=== PATIENT | male | born 1975 | race American Indian/Alaskan Native ===

== ENCOUNTER → 2022-01-08 16:05 | Outpatient (CLI) | payer MEDICAID, OTHER, SELFPAY ==
--- NOTE | 2022-01-08 | DI.RAD.S_ITS ---
PROCEDURE: XR LUMBAR SPINE 2-3V INDICATIONS: Rib Pain/Lumbar Spine TECHNIQUE: 3 views of the lumbar spine were acquired. COMPARISON: None. FINDINGS: Bones: 5 [id number] vertebrae are present. 2 mm retrolisthesis L1-L2, L2-L3 and L3-L4. Mild disc height loss at the L5-S1 level. Mild L4-L5 and L5-S1 facet joint arthropathy. No vertebral body compression fractures. No suspicious bony lesions. Soft tissues: Overlying bowel gas pattern is normal. No suspicious soft tissue calcifications. IMPRESSION: Mild multilevel spondylosis. Dictated by: Wali Fierro [facility] Interpreted: Eleanor Dodd MD on 01/09/2022 at 8:36 Transcribed by: FLOR on 01/09/2022 at 8:37 Approved by: Eleanor Dodd M.D. on 01/19/2022 at 15:27
--- NOTE | 2022-01-08 | DI.RAD.S_ITS ---
PROCEDURE: XR RIBS LT MIN 3V W CXR1V INDICATIONS: Rib Pain/Lumbar Spine TECHNIQUE: 3 views of the left ribs were acquired, along with a single view chest. COMPARISON: None. FINDINGS: Surgical changes and devices: None. Bones and chest wall: Left 7th posterior lateral rib fracture.. No suspicious bony lesions. Overlying soft tissues appear unremarkable. Lungs and pleura: No pleural effusions or pneumothorax. Lungs appear clear. Mediastinum: Mediastinal contours appear normal. Heart size is normal. IMPRESSION: Minimally displaced left 7th posterior lateral rib fracture. Dictated by: Wali Fierro [facility] Interpreted: Dylan Peraza MD on 01/08/2022 at 16:57 Transcribed by: TIM on 01/08/2022 at 16:58 Approved by: Dylan Peraza M.D. on 01/08/2022 at 17:00
== END ==
PROVIDERS: Referring Provider Physician Assistant; Visit Provider Physician Assistant
DX: S22.32XA Fracture of one rib, left side, initial encounter for closed fracture (principal); M47.816 Spondylosis without myelopathy or radiculopathy, lumbar region; M47.817 Spondylosis without myelopathy or radiculopathy, lumbosacral region; R07.81 Pleurodynia; M54.50 Low back pain, unspecified
CPT/HCPCS: 71101; 72100

== ENCOUNTER → 2022-01-30 15:31 | Outpatient (CLI) | payer MEDICAID, OTHER, SELFPAY ==
--- NOTE | 2022-01-30 | DI.RAD.S_ITS ---
PROCEDURE: XR RIBS LT MIN 3V W CXR1V INDICATIONS: Fracture of one rib, left side, subsequent encounter for fra TECHNIQUE: 2 views of the left ribs were acquired, along with a single view chest. COMPARISON: [facility], CR, XR RIBS LT MIN 3V W CXR1V, 01/08/2022, 16:11. FINDINGS: Surgical changes and devices: None. Bones and chest wall: No acute displaced rib fracture. No definite osseous abnormality is seen adjacent to the air markers indicating the patient indicated area of pain. No suspicious bony lesions. Overlying soft tissues appear unremarkable. Lungs and pleura: No pleural effusions or pneumothorax. Lungs appear clear. Mediastinum: Mediastinal contours appear normal. Heart size is normal. IMPRESSION: No acute displaced rib fracture. Previously seen posterior lateral 7th rib fracture is not well visualized. No pneumothorax or pleural effusion. Dictated by: Remy Morris M.D. on 01/30/2022 at 20:03 Approved by: Remy Morris M.D. on 01/30/2022 at 20:06
== END ==
PROVIDERS: Referring Provider Physician Assistant; Visit Provider Physician Assistant
DX: S22.32XG Fracture of one rib, left side, subsequent encounter for fracture with delayed healing (principal); X58.XXXD Exposure to other specified factors, subsequent encounter
CPT/HCPCS: 71101

== ENCOUNTER 2022-11-05 15:56 | Emergency (ER) | payer MEDICAID, OTHER, SELFPAY ==
[2022-11-05] VITALS (14 sets, daily range): BP systolic 117–159; BP diastolic 73–89; PULSE 75–87; RESP 15–20; TEMP 37; O2SAT 98–100; BMI 26.6
[2022-11-05] MEDS: SODIUM CHLORIDE 0.9% 1,000 ML 1000 ML IV ×2 (16:26→18:53)
[2022-11-05 16:39] LABS: Add Manual Diff / Slide Review NO; Basophils Absolute Auto 200 /uL (0-100); Basophils Percent Auto 4.4 % (0-2); Eosinophils Absolute Auto 100 /uL (0-450); Eosinophils Percent Auto 2.4 % (2-4); Hematocrit 39.3 % (41-53); Hemoglobin 13.4 g/dL (13.5-17.5); Lymphocytes Absolute Auto 2200 /uL (1100-4500); Lymphocytes Percent Auto 42.8 % (25-40); Mean Corpuscular HGB Conc 34.2 % (30-36); Mean Corpuscular Hemoglobin 30.1 PG (26-34); Monocytes Absolute Auto 500 /uL (0-900); Monocytes Percent Auto 10.6 % (3-14); Neutrophils Absolute Auto 2000 /uL (1500-7000); Neutrophils Percent Auto 39.8 % (50-75); Platelet Count 261 X10^3/uL (150-400); Red Blood Cell Count 4.47 X10^6/uL (4.5-5.9); Red Cell Distribution Width 16.3 % (11.6-14.8)
--- NOTE | 2022-11-05 16:44 | ED_ITS ---
HPI - General Adult General Chief complaint: Diabetic Problem Stated complaint: dr wyatt/pain/ketones/blood sugar up to 566 Time Seen by Provider: 11/05/22 16:06 Source: patient Mode of arrival: Ambulatory History of Present Illness HPI narrative: Patient is a 57-year-old male who was instructed to come to the emergency department by his primary doctor because of elevated blood sugar and also ketones in his urine. Patient states that he has been prescribed insulin in the past but stopped taking it because it made him feel poorly. That was just under 1 year ago. He is not currently on any diabetes medications. He has chronic pain in his knees and his back. His primary doctor has but referrals and for him to see pain management. No chest pain. No shortness of breath. No abdominal pain. No urinary symptoms. No fevers. All of his discomfort is chronic for him. He had labs drawn as an outpatient last week and repeated t lili which is why he was instructed to come here to the ER. Related Data Home Medications Medication Instructions Recorded Confirmed cyclobenzaprine 10 mg tablet 10 mg PO TID PRN Muscle Spasm 11/05/22 11/05/22 Previous Rx's Medication Instructions Recorded metformin 1,000 mg tablet 1,000 mg PO BID #60 tabs 11/05/22 Allergies Allergy/AdvReac Type Severity Reaction Status Date / Time amoxicillin Allergy Severe Difficulty Verified 11/05/22 16:26 Breathing Review of Systems Constitutional Constitutional: Reports system reviewed and no additional complaints, except as documented Cardiovascular Cardiovascular: Reports system reviewed and no additional complaints, except as documented Respiratory Respiratory: Reports system reviewed and no additional complaints, except as documented Gastrointestinal Gastrointestinal: Reports system reviewed and no additional complaints, except as documented Integumentary/Breasts Skin/Breast: Reports system reviewed and no additional complaints, except as documented Neurologic Neurologic: Reports system reviewed and no additional complaints, except as documented Hematologic/Lymphatic On Anticoagulants: No Patient History Social History Smoking Status: Never smoker Smoking Status: Never smoker alcohol intake frequency: 0-2 drinks per day Substance Use Type: does not use Exam Initial Vital Signs Initial Vital Signs: Vital Signs Temperature 98.6 F 11/05/22 16:10 Pulse Rate 83 11/05/22 16:10 Respiratory Rate 20 11/05/22 16:10 Blood Pressure 159/81 H 11/05/22 16:10 Pulse Oximetry 100 11/05/22 16:10 Oxygen Delivery Method Room Air 11/05/22 16:10 Const General: cooperative, comfortable and No ill appearing HENMT Head: normal to inspection and normocephalic Resp Effort & Inspection: normal respiratory effort Auscultation: clear to auscultation bilaterally Cardio Rate: regular rate Rhythm: regular rhythm GI Inspection: normal to inspection and non-distended Palpation: soft and No tender Skin General: no rashes or lesions noted Neuro General: patient alert, patient awake and moves all extremities Extrem General: normal to inspection and capillary refill normal Course Orders Ordered: ED Orders 11/05/22 16:06 VBG [Venous Blood Gas] Stat 11/05/22 16:21 Complete Blood Count AUTO DIFF Stat Comprehensive Metabolic Panel Stat Ethanol (ETOH) Stat Ketones (Beta-Hydroxybutyrate) Stat Lactate (Lactic Acid) Stat Lipase Stat Magnesium Stat Phosphorous Stat Procalcitonin Stat 11/05/22 16:25 Urine Culture Stat Urine Drug Screen, Rapid Stat 11/05/22 16:37 EKG-12 Lead Routine 11/05/22 16:46 Blood Culture Stat 11/05/22 16:53 COVID19 -Nasal RAPID Stat Sodium Chloride (Normal Saline 0.9%) 1,000 mls @ 1,000 mls/hr IV BOLUS ONE Stop: 11/05/22 19:05 Metformin HCl (Metformin Hcl 500 Mg Tablet) 1,000 mg PO NOW ONE Stop: 11/05/22 18:48 Discontinued Medications Acetaminophen (Acetaminophen 325 Mg Tablet) 975 mg PO NOW ONE Stop: 11/05/22 16:51 Last Admin: 11/05/22 17:05 Dose: Not Given Documented By: AMU Sodium Chloride (Normal Saline 0.9%) 1,000 mls @ 1,000 mls/hr IV BOLUS ONE Stop: 11/05/22 17:05 Last Infusion: 11/05/22 18:00 Dose: 0 mls/hr Documented By: Admin: 11/05/22 16:26 Dose: 1,000 mls/hr Documented By: SB Vital Signs Vital signs: Vital Signs - 8 hr 11/05/22 16:10 11/05/22 16:16 11/05/22 16:17 Temperature 98.6 F Pulse Rate 83 84 Respiratory Rate 20 Blood Pressure 159/81 H 159/86 H Pulse Oximetry 100 100 Oxygen Delivery Method Room Air 11/05/22 16:17 11/05/22 16:30 11/05/22 16:49 Temperature Pulse Rate 85 85 Respiratory Rate 16 15 Blood Pressure 129/82 Pulse Oximetry 100 100 Oxygen Delivery Method 11/05/22 16:49 11/05/22 17:00 11/05/22 17:00 Temperature Pulse Rate 84 81 Respiratory Rate 20 17 Blood Pressure 131/89 Pulse Oximetry 99 100 Oxygen Delivery Method Room Air Room Air Medical Decision Making Lab Data Lab results reviewed: Yes I reviewed the patient's lab results. 11/05/22 16:21 11/05/22 16:21 Labs: Lab Results 11/05/22 11/05/22 11/05/22 Range/Units 16:21 16:21 16:21 WBC 5.0 (4.5-11.0) X10^3/uL RBC 4.47 L (4.5-5.9) X10^6/uL Hgb 13.4 L (13.5-17.5) g/dL Hct 39.3 L (41-53) % MCV 88.0 (80-100) fL MCH 30.1 (26-34) PG MCHC 34.2 (30-36) % RDW 16.3 H (11.6-14.8) % Plt Count 261 (150-400) X10^3/uL Neut % (Auto) 39.8 L (50-75) % Lymph % (Auto) 42.8 H (25-40) % [place] % (Auto) 10.6 (3-14) % Eos % (Auto) 2.4 (2-4) % Baso % (Auto) 4.4 H (0-2) % Neut # (Auto) 2000 (4250-0014) /uL Lymph # (Auto) 2200 (6201-7766) /uL [place] # (Auto) 500 (0-900) /uL Eos # (Auto) 100 (0-450) /uL Baso # (Auto) 200 H (0-100) /uL Sodium 130 L (137-145) mmol/L Potassium 3.2 L (3.4-5.1) mmol/L Chloride 90 L (98-107) mmol/L Carbon Dioxide 33 H (22-32) mmol/L BUN 5 L (9-20) mg/dL Creatinine 0.61 L (0.66-1.25) mg/dL Estimated GFR > 60 (>60) mL/min BUN/Creatinine Ratio 8.2 (6-22) Glucose 460 H (70-100) mg/dL Lactate 1.2 (0.7-2.1) mmol/L Calcium 8.5 (8.4-10.2) mg/dL Phosphorus 3.5 (2.5-4.5) mg/dL Magnesium 1.5 L (1.6-2.3) mg/dL Total Bilirubin 0.5 (0.2-1.3) mg/dL AST 57 (17-59) IU/L ALT 58 H (<50) IU/L Alkaline Phosphatase 263 H (38-126) U/L Total Protein 7.5 (6.3-8.2) g/dL Albumin 3.8 (3.5-5.0) g/dL Globulin 3.7 (1.7-4.1) g/dL Albumin/Globulin Ratio 1.0 (1.0-2.8) Lipase 260 (23-300) U/L Procalcitonin 0.08 (<0.5) ng/mL U Opiates 300ng/mL cut (Negative) Ur Oxycodone Screen (Negative) Urine Methadone Screen (Negative) Ur Barbiturates Screen (Negative) U Tricyclic Antidepress (Negative) Ur Phencyclidine Scrn (Negative) Ur Amphetamines Screen (Negative) U Methamphetamines Scrn (Negative) Ur MDMA Scrn (Ecstasy) (Negative) U Benzodiazepines Scrn (Negative) Urine Cocaine Screen (Negative) U Marijuana (THC) Screen (Negative) Ethyl Alcohol < 10 ( - 10) mg/dL Ketones 0.05 (<0.27) mmol/L SARS-CoV-2 (PCR) (Negative) 11/05/22 11/05/22 Range/Units 16:25 16:53 WBC (4.5-11.0) X10^3/uL RBC (4.5-5.9) X10^6/uL Hgb (13.5-17.5) g/dL Hct (41-53) % MCV (80-100) fL MCH (26-34) PG MCHC (30-36) % RDW (11.6-14.8) % Plt Count (150-400) X10^3/uL Neut % (Auto) (50-75) % Lymph % (Auto) (25-40) % [place] % (Auto) (3-14) % Eos % (Auto) (2-4) % Baso % (Auto) (0-2) % Neut # (Auto) (7806-0018) /uL Lymph # (Auto) (9252-4733) /uL [place] # (Auto) (0-900) /uL Eos # (Auto) (0-450) /uL Baso # (Auto) (0-100) /uL Sodium (137-145) mmol/L Potassium (3.4-5.1) mmol/L Chloride (98-107) mmol/L Carbon Dioxide (22-32) mmol/L BUN (9-20) mg/dL Creatinine (0.66-1.25) mg/dL Estimated GFR (>60) mL/min BUN/Creatinine Ratio (6-22) Glucose (70-100) mg/dL Lactate (0.7-2.1) mmol/L Calcium (8.4-10.2) mg/dL Phosphorus (2.5-4.5) mg/dL Magnesium (1.6-2.3) mg/dL Total Bilirubin (0.2-1.3) mg/dL AST (17-59) IU/L ALT (<50) IU/L Alkaline Phosphatase (38-126) U/L Total Protein (6.3-8.2) g/dL Albumin (3.5-5.0) g/dL Globulin (1.7-4.1) g/dL Albumin/Globulin Ratio (1.0-2.8) Lipase (23-300) U/L Procalcitonin (<0.5) ng/mL U Opiates 300ng/mL cut Negative (Negative) Ur Oxycodone Screen Negative (Negative) Urine Methadone Screen Negative (Negative) Ur Barbiturates Screen Negative (Negative) U Tricyclic Antidepress Negative (Negative) Ur Phencyclidine Scrn Negative (Negative) Ur Amphetamines Screen Negative (Negative) U Methamphetamines Scrn Negative (Negative) Ur MDMA Scrn (Ecstasy) Negative (Negative) U Benzodiazepines Scrn Negative (Negative) Urine Cocaine Screen Negative (Negative) U Marijuana (THC) Screen Positive H (Negative) Ethyl Alcohol ( - 10) mg/dL Ketones (<0.27) mmol/L SARS-CoV-2 (PCR) Negative (Negative) Urine Dip Bedside Urine Glucose 1000 mg/dl Bedside Urine Bilirubin - Negative Bedside Urine Ketone - Negative Urine Specific [place] 1.010 Bedside Urine Occult Blood - Negative Bedside Urine pH 7.5 Bedside Urine Protein - Negative Bedside Urine Urobilinogen - Negative Bedside Urine Nitrite - Negative Bedside Urine Leukocytes - Negative Esterase Point of care testing: Urine Dip Bedside Urine Glucose 1000 mg/dl Bedside Urine Bilirubin - Negative Bedside Urine Ketone - Negative Urine Specific [place] 1.010 Bedside Urine Occult Blood - Negative Bedside Urine pH 7.5 Bedside Urine Protein - Negative Bedside Urine Urobilinogen - Negative Bedside Urine Nitrite - Negative Bedside Urine Leukocytes - Negative Esterase ECG Data Attestation: I personally reviewed and interpreted this ECG as follows: Interpretation: Sinus rhythm Ventricular rate is 78 Normal axis Normal QRS Normal QTC No ST T wave changes MDM Narrative Medical decision making narrative: Patient is hyperglycemic but is not in DKA. No signs of acute infection. No ketones in his urine today. Was given 2 L of fluid. His blood sugar was still elevated but improved. Patient does have issues with taking insulin. Was having quite a bit of nausea and vomiting which is why he stopped his insulin approximately 1 year ago. Informed patient that he does need to talk with his primary doctor about this because he does need to be on insulin. Until that we will start him on metformin. No indication for admission to the hospital. Will discharge patient home follow-up with primary doctor. He was given return preca utions. He expressed understanding and agreement. Discharge Plan Departure Patient Disposition: Home Clinical Impression: Diabetes mellitus, Hyperglycemia Instructions: DI for Diabetes Type 2, DI for Hyperglycemia -- Adult Activity Restrictions/Additional Instructions: I do recommend that you take the metformin as directed. You do need to talk with your primary doctor about starting insulin. Your primary doctor may stop the metformin what you start the insulin however it could provide some minor help until you can follow-up with your primary doctor. Be sure that you are staying hydrated. Turned to the emergency department for new symptoms. Prescriptions: New metformin 1,000 mg tablet 1,000 mg PO BID Qty: 60 0RF No Action cyclobenzaprine 10 mg tablet 10 mg PO TID PRN (Reason: Muscle Spasm) Patient Comments: TAKE 1 TABLET BY MOUTH THREE TIMES DAILY NEEDED Referrals: Miscellaneous,Doctor, MD [Primary Care Provider] - Stand Alone Forms: Patient Portal/API
[2022-11-05 16:51] LABS: Alanine Aminotransferase 58 IU/L (<50); Albumin 3.8 g/dL (3.5-5.0); Alkaline Phosphatase 263 U/L (38-126); Aspartate Aminotransferase 57 IU/L (17-59); BUN Creatinine Ratio 8.2 (6-22); Bilirubin Total 0.5 mg/dL (0.2-1.3); Blood Urea Nitrogen 5 mg/dL (9-20); Calcium 8.5 mg/dL (8.4-10.2); Carbon Dioxide 33 mmol/L (22-32); Chloride 90 mmol/L (98-107); Estimated Glomerular Filt Rate > 60 mL/min (>60); Ethanol (ETOH) < 10 mg/dL; Globulin 3.7 g/dL (1.7-4.1); Glucose 460 mg/dL (70-100); Lactate (Lactic Acid) 1.2 mmol/L (0.7-2.1); Lipase 260 U/L (23-300); Magnesium 1.5 mg/dL (1.6-2.3); Phosphorous 3.5 mg/dL (2.5-4.5); Potassium 3.2 mmol/L (3.4-5.1); Sodium 130 mmol/L (137-145); Total Protein 7.5 g/dL (6.3-8.2)
[2022-11-05 16:55] LABS: UR Morphine/Opiate cutoff 300 Negative (Negative); Ur Creatinine Normal (Normal); Ur Specific Gravity Normal (Normal); Urine Amphetamines Negative (Negative); Urine Barbiturates Negative (Negative); Urine Benzodiazepines Negative (Negative); Urine Cocaine Negative (Negative); Urine MDMA Negative (Negative); Urine Methadone Negative (Negative); Urine Methamphetamines Negative (Negative); Urine Oxycodone Negative (Negative); Urine Phencyclidine Negative (Negative); Urine Tetrahydrocannabinol Positive (Negative); Urine Tricyclic Antidepressant Negative (Negative); Urine pH Normal (Normal)
--- NOTE | 2022-11-05 16:57 | PC.NURSE ---
Pt at his PCP and was told to come here due to his high blood sugar level of 566. Pt reports unknown if type 1 or type 2 diabetic. Diagnosed at age 22. Pt stopped taking his insulin in February because it made me nauseous. Pt also reports recent fall out of bed last week with LOC and hitting head. Denies thinners, denies chest pain, denies SOB. Pt reports a little pain in his upper abdomen after provider pushed on it a little.
[2022-11-05 17:07] LABS: Procalcitonin 0.08 ng/mL (<0.5)
[2022-11-05 17:08] LABS: HEMOLYSIS 22 (0-50); Ketones (Beta-Hydroxybutyrate) 0.05 mmol/L (<0.27)
[2022-11-05 17:08] LABS: COVID19 -Nasal RAPID Negative (Negative)
[2022-11-05] MEDS: METFORMIN HCL 500 MG TABLET 1000 MG PO (19:22)
== END 2022-11-05 20:10 | disposition home or self-care (01) ==
PROVIDERS: Emergency Provider Emergency Medicine
DX: E11.65 Type 2 diabetes mellitus with hyperglycemia (principal); Z20.822 Contact with and (suspected) exposure to COVID-19
CPT/HCPCS: 36415; 80053; 80305; 80320; 81003; 82009; 82962; 83605; 83690; 83735; 84100; 84145; 85025; 87040; 87086; 87635; 93005; 93010; 96360; 96361; 99284; C9803